=== PATIENT | male | born 1945 | race African-American/Black ===

== ENCOUNTER 2021-12-05 08:50 | Inpatient (IN) | payer MEDICARE, MEDICAID ==
[2021-12-05 09:41] LABS: Actual Bicarbonate (HCO3v) 31 mEq/L (22-28); Base Excess 4.1 mEq/L (-2.0 to +3.0); Chloride (VBG) 103 mmol/L (98-106); Potassium (VBG) 4.38 mmol/L (3.70-5.30); Puncture Site Other Site; Sodium 142.4 mmol/L (133-146); pH (venous) 7.36 (7.32-7.43)
[2021-12-05 09:48] LABS: #Monocytes 0.2 10x3/uL (0.0-1.1); %Basophils 0.2 % (0.0-2.0); %Lymphocytes 15.8 % (18.0-47.0); %Monocytes 4.6 % (0.0-10.0); %Neutrophils 79.2 % (40.0-75.0); Hemoglobin 12.7 g/dL (13.5-17.5); Mean Corpuscular HGB CONC 32.2 g/dL (32.0-36.0); Mean Corpuscular Hemoglobin 29.8 pg (27.0-33.0); Mean Corpuscular Volume 92.7 fl (81.2-95.1); Mean Platelet Volume 10.9 fl (7.4-10.4); Platelet Count 163 10x3/uL (150-450); RBC Distribution Width 12.8 % (11.5-14.5); Red Blood Cell (RBC) Count 4.26 10x6/uL (4.32-5.72)
[2021-12-05 10:01] LABS: ALT (SGPT) 74 U/L (8-55); AST (SGOT) 290 U/L (5-34); Acetaminophen Less than 6.0 mcg/mL (10.0-30.0); Albumin 3.8 g/dL (3.4-4.8); Alcohol Less than 10 mg/dL (Less than 10); Alkaline Phosphatase 53 U/L (40-110); Anion Gap 14 mmol/L (10-20); BUN (Urea Nitrogen) 17 mg/dL (8.4-25.7); Bilirubin, Total 1.2 mg/dL (0.2-1.2); Calc. Creatinine Clearance 0 mL/min (70-130); Calcium 9.1 mg/dL (7.8-10.44); Carbon Dioxide 30 mmol/L (23-31); Chloride 104 mmol/L (98-107); Globulin 3.4 g/dL (2.4-3.5); Glucose 107 mg/dL (83-110); Potassium 3.5 mmol/L (3.5-5.1); Protein, Total 7.2 g/dL (5.8-8.1); Salicylate Less than 8.0 mg/dL (15.0-30.0); Sodium 144 mmol/L (136-145)
[2021-12-05] MEDS ORDERED: methylPREDNISolone Sod Succ/PF 125 MG/2 ML VIAL ONE (10:18)
[2021-12-05] MEDS ORDERED: cefTRIAXone\\ROCEPHIN 2 GM VIAL ONE (11:10)
[2021-12-05] MEDS ORDERED: Azithromycin 500 MG VIAL ONE (11:11)
[2021-12-05 11:13] LABS: SARS-CoV-2 NAA Rapid Test DETECTED (NotDetected)
[2021-12-05 11:26] LABS: CKMB 22.2 ng/mL (0-6.6)
[2021-12-05] MEDS ORDERED: Ventolin HFA Inhaler 60 PUFF INHALER ONE ×2 (11:43→22:13)
[2021-12-05] MEDS ORDERED: Acetaminophen 325 MG TAB PO PRN (12:01)
[2021-12-05] MEDS ORDERED: Ondansetron ODT 4 MG TAB PO PRN (12:01)
[2021-12-05] MEDS ORDERED: Ondansetron PF 4 MG/2 ML Vial IVP PRN (12:01)
[2021-12-05] MEDS ORDERED: Acetaminophen 650 MG Suppository PR PRN (12:01)
[2021-12-05 12:20] LABS: Lactic Acid 1.2 mmol/L (0.5-2.2)
[2021-12-05 17:28] LABS: CKMB 2.3 ng/mL (0-6.6)
[2021-12-05] MEDS ORDERED: Ipratropium Bromide 2.5 ml Neb NEB PRN (18:04)
[2021-12-05] MEDS: Sodium Chloride 0.9% 1,000 ML IV SCH (19:15)
[2021-12-05] MEDS ORDERED: Acetaminophen 325 MG TAB ONE (19:54)
[2021-12-05] MEDS ORDERED: Acetaminophen 325 MG Suppository ONE (20:11)
[2021-12-05] MEDS ORDERED: Heparin 5,000 UNITS/ML VIAL ONE (21:42)
[2021-12-05] MEDS: Heparin 5,000 UNITS/ML VIAL SC SCH (21:45)
[2021-12-05] MEDS: Ventolin HFA Inhaler 60 PUFF INHALER INH PRN (22:30)
[2021-12-06 03:49] LABS: #Monocytes 0.1 10x3/uL (0.0-1.1); #Neutrophils 2.5 10x3/uL (1.5-8.4); %Lymphocytes 18.5 % (18.0-47.0); %Neutrophils 77.2 % (40.0-75.0); Hemoglobin 12.6 g/dL (13.5-17.5); Mean Corpuscular HGB CONC 32.1 g/dL (32.0-36.0); Mean Corpuscular Hemoglobin 30.3 pg (27.0-33.0); Mean Corpuscular Volume 94.2 fl (81.2-95.1); Mean Platelet Volume 11.4 fl (7.4-10.4); Platelet Count 186 10x3/uL (150-450); Red Blood Cell (RBC) Count 4.16 10x6/uL (4.32-5.72); White Blood Cell (WBC) Count 3.3 10x3/uL (3.5-10.5)
[2021-12-06 04:18] LABS: ALT (SGPT) 65 U/L (8-55); AST (SGOT) 238 U/L (5-34); Albumin 3.3 g/dL (3.4-4.8); Alkaline Phosphatase 44 U/L (40-110); Anion Gap 15 mmol/L (10-20); BUN (Urea Nitrogen) 23 mg/dL (8.4-25.7); Bilirubin, Total 0.8 mg/dL (0.2-1.2); Calc. Creatinine Clearance 0 mL/min (70-130); Calcium 8.6 mg/dL (7.8-10.44); Carbon Dioxide 24 mmol/L (23-31); Chloride 111 mmol/L (98-107); Globulin 3.1 g/dL (2.4-3.5); Glucose 145 mg/dL (83-110); Potassium 4.1 mmol/L (3.5-5.1); Protein, Total 6.4 g/dL (5.8-8.1); Sodium 146 mmol/L (136-145)
[2021-12-06] MEDS: Sodium Chloride 0.9% 1,000 ML IV SCH (06:52)
[2021-12-06] MEDS ORDERED: Heparin 5,000 UNITS/ML VIAL ONE (08:17)
[2021-12-06] MEDS ORDERED: Azithromycin 500 MG VIAL ONE (08:17)
[2021-12-06] MEDS ORDERED: cefTRIAXone\\ROCEPHIN 1 GM VIAL ONE (08:17)
[2021-12-06] MEDS: Azithromycin 500 MG in Sodium Chloride 0.9% 250 ML 250 ML IVPB SCH (08:34)
[2021-12-06] MEDS: Heparin 5,000 UNITS/ML VIAL SC SCH ×2 (08:35→22:23)
[2021-12-06] MEDS: cefTRIAXone\\ROCEPHIN 1 GM in Sodium Chloride 0.9% 100 ML IVPB SCH (08:35)
[2021-12-06] MEDS: Mometasone Furoate 120 PUFF 220 MCG INH SCH ×3 (08:45→21:35)
[2021-12-06] MEDS: D5 1/2 NS 500 ML IV SCH ×3 (14:30→22:15)
[2021-12-06 16:59] VITALS: BMI 18.2
[2021-12-06] MEDS: Ventolin HFA Inhaler 60 PUFF INHALER INH PRN (20:05)
[2021-12-07 06:02] LABS: #Monocytes 0.2 10x3/uL (0.0-1.1); #Neutrophils 2.9 10x3/uL (1.5-8.4); %Lymphocytes 23.4 % (18.0-47.0); %Neutrophils 71.4 % (40.0-75.0); Hemoglobin 13.2 g/dL (13.5-17.5); Mean Corpuscular HGB CONC 32.4 g/dL (32.0-36.0); Mean Corpuscular Volume 92.7 fl (81.2-95.1); Mean Platelet Volume 11.1 fl (7.4-10.4); Platelet Count 248 10x3/uL (150-450); RBC Distribution Width 12.9 % (11.5-14.5)
[2021-12-07] MEDS: D5 1/2 NS 500 ML IV SCH ×3 (07:29→17:51)
[2021-12-07 07:31] LABS: ALT (SGPT) 60 U/L (8-55); AST (SGOT) 176 U/L (5-34); Albumin 3.3 g/dL (3.4-4.8); Alkaline Phosphatase 45 U/L (40-110); Anion Gap 16 mmol/L (10-20); BUN (Urea Nitrogen) 22 mg/dL (8.4-25.7); Bilirubin, Total 0.7 mg/dL (0.2-1.2); Calc. Creatinine Clearance 66 mL/min (70-130); Calcium 8.5 mg/dL (7.8-10.44); Carbon Dioxide 25 mmol/L (23-31); Chloride 109 mmol/L (98-107); Globulin 3.1 g/dL (2.4-3.5); Glucose 113 mg/dL (83-110); Potassium 4.2 mmol/L (3.5-5.1); Protein, Total 6.4 g/dL (5.8-8.1); Sodium 146 mmol/L (136-145)
[2021-12-07] MEDS: Mometasone Furoate 120 PUFF 220 MCG INH SCH ×2 (08:46→19:55)
[2021-12-07] MEDS: Heparin 5,000 UNITS/ML VIAL SC SCH ×2 (10:18→21:45)
[2021-12-07] MEDS: Azithromycin 500 MG in Sodium Chloride 0.9% 250 ML 250 ML IVPB SCH (10:23)
[2021-12-07] MEDS: cefTRIAXone\\ROCEPHIN 1 GM in Sodium Chloride 0.9% 100 ML IVPB SCH (10:24)
[2021-12-08] MEDS: D5 1/2 NS 500 ML IV SCH (04:18)
[2021-12-08 04:54] LABS: ALT (SGPT) 49 U/L (8-55); AST (SGOT) 125 U/L (5-34); Albumin 3.1 g/dL (3.4-4.8); Alkaline Phosphatase 46 U/L (40-110); Anion Gap 11 mmol/L (10-20); BUN (Urea Nitrogen) 13 mg/dL (8.4-25.7); Bilirubin, Total 0.9 mg/dL (0.2-1.2); Calc. Creatinine Clearance 78 mL/min (70-130); Calcium 8.3 mg/dL (7.8-10.44); Carbon Dioxide 27 mmol/L (23-31); Chloride 109 mmol/L (98-107); Globulin 2.7 g/dL (2.4-3.5); Glucose 103 mg/dL (83-110); Potassium 3.8 mmol/L (3.5-5.1); Protein, Total 5.8 g/dL (5.8-8.1); Sodium 143 mmol/L (136-145)
[2021-12-08 05:30] LABS: #Monocytes 0.2 10x3/uL (0.0-1.1); #Neutrophils 1.2 10x3/uL (1.5-8.4); %Lymphocytes 43.8 % (18.0-47.0); %Monocytes 8.5 % (0.0-10.0); %Neutrophils 47.3 % (40.0-75.0); Hemoglobin 11.8 g/dL (13.5-17.5); Mean Corpuscular HGB CONC 31.6 g/dL (32.0-36.0); Mean Corpuscular Hemoglobin 29.6 pg (27.0-33.0); Mean Corpuscular Volume 93.7 fl (81.2-95.1); Mean Platelet Volume 11.3 fl (7.4-10.4); Platelet Count 218 10x3/uL (150-450); RBC Distribution Width 12.7 % (11.5-14.5); Red Blood Cell (RBC) Count 3.98 10x6/uL (4.32-5.72); White Blood Cell (WBC) Count 2.6 10x3/uL (3.5-10.5)
[2021-12-08] MEDS ORDERED: Dextrose 5 %-0.45 % NaCl 1,000 ML IV SCH (05:45)
[2021-12-08] MEDS: Ventolin HFA Inhaler 60 PUFF INHALER INH PRN (08:00)
[2021-12-08] MEDS: Mometasone Furoate 120 PUFF 220 MCG INH SCH ×2 (08:00→20:15)
[2021-12-08] MEDS: cefTRIAXone\\ROCEPHIN 1 GM in Sodium Chloride 0.9% 100 ML IVPB SCH (09:29)
[2021-12-08] MEDS: Azithromycin 500 MG in Sodium Chloride 0.9% 250 ML 250 ML IVPB SCH (09:30)
[2021-12-08] MEDS: Heparin 5,000 UNITS/ML VIAL SC SCH ×2 (09:34→20:45)
[2021-12-08 18:18] LABS: Bilirubin Neg (Negative); Blood, Urine Negative (Negative); Clarity Clear (Clear); Glucose, Urine (Dipstick) Normal (Negative); Ketone, Urine Negative (Negative); Leukocyte Negative (Negative); Nitrite Negative (Negative); Protein, Urine (Dipstick) 15 mg/dl (Neg-Trace); Specific Gravity, Urine 1.005 (1.002-1.036); Urobilinogen 12 mg/dL (Less than 2)
[2021-12-08 18:20] LABS: Urine Culture Reflex No No
[2021-12-08 18:22] LABS: RBC/HPF 0-3 HPF (0-3); Squamous Epithelial 0-3 HPF (0-3); WBC/HPF 0-3 HPF (0-3)
[2021-12-08 18:23] LABS: Bacteria/HPF None Seen HPF (None Seen)
[2021-12-08 18:30] LABS: Legionella Urinary Ag Negative (Negative); Strep pneumo Urine Ag NEGATIVE (NEGATIVE)
[2021-12-08] MEDS: Dexamethasone 20 MG/5 ML VIAL SLOW IVP SCH (20:45)
[2021-12-09 05:16] LABS: ALT (SGPT) 52 U/L (8-55); AST (SGOT) 97 U/L (5-34); Albumin 3.2 g/dL (3.4-4.8); Alkaline Phosphatase 59 U/L (40-110); Anion Gap 13 mmol/L (10-20); BUN (Urea Nitrogen) 14 mg/dL (8.4-25.7); Bilirubin, Total 0.9 mg/dL (0.2-1.2); Calc. Creatinine Clearance 74 mL/min (70-130); Calcium 8.5 mg/dL (7.8-10.44); Carbon Dioxide 26 mmol/L (23-31); Chloride 107 mmol/L (98-107); Globulin 3.2 g/dL (2.4-3.5); Glucose 130 mg/dL (83-110); Protein, Total 6.4 g/dL (5.8-8.1); Sodium 142 mmol/L (136-145)
[2021-12-09 05:48] LABS: Hemoglobin 12.1 g/dL (13.5-17.5); Mean Corpuscular HGB CONC 31.3 g/dL (32.0-36.0); Mean Corpuscular Hemoglobin 29.3 pg (27.0-33.0); Mean Corpuscular Volume 93.7 fl (81.2-95.1); Platelet Count 252 10x3/uL (150-450); RBC Distribution Width 12.5 % (11.5-14.5); Red Blood Cell (RBC) Count 4.13 10x6/uL (4.32-5.72); White Blood Cell (WBC) Count 1.6 10x3/uL (3.5-10.5)
[2021-12-09 07:45] LABS: MDiff Complete? YES
[2021-12-09] MEDS: Mometasone Furoate 120 PUFF 220 MCG INH SCH ×2 (07:58→21:06)
[2021-12-09] MEDS: Ventolin HFA Inhaler 60 PUFF INHALER INH PRN (07:59)
[2021-12-09 08:19] LABS: Eosinophils 1 % (0-10); Lymphocytes 21 % (21-51); Monocytes 13 % (0-10); Neutrophil 64 % (42-75); Platelet Morphology Comment Appears Adequate; Reactive Lymphocytes 1 % (0-10)
[2021-12-09] MEDS: cefTRIAXone\\ROCEPHIN 1 GM in Sodium Chloride 0.9% 100 ML IVPB SCH (09:10)
[2021-12-09] MEDS: Dexamethasone 20 MG/5 ML VIAL SLOW IVP SCH ×2 (09:11→21:45)
[2021-12-09] MEDS: Heparin 5,000 UNITS/ML VIAL SC SCH ×2 (09:12→21:44)
[2021-12-09] MEDS: Azithromycin 500 MG in Sodium Chloride 0.9% 250 ML 250 ML IVPB SCH (09:12)
[2021-12-10 05:20] LABS: Hemoglobin 12.9 g/dL (13.5-17.5); Mean Corpuscular HGB CONC 32.6 g/dL (32.0-36.0); Mean Corpuscular Hemoglobin 29.7 pg (27.0-33.0); Mean Corpuscular Volume 91.2 fl (81.2-95.1); Mean Platelet Volume 10.7 fl (7.4-10.4); Platelet Count 330 10x3/uL (150-450); RBC Distribution Width 12.5 % (11.5-14.5); Red Blood Cell (RBC) Count 4.34 10x6/uL (4.32-5.72); White Blood Cell (WBC) Count 3.7 10x3/uL (3.5-10.5)
[2021-12-10 05:37] LABS: ALT (SGPT) 46 U/L (8-55); AST (SGOT) 62 U/L (5-34); Albumin 3.2 g/dL (3.4-4.8); Alkaline Phosphatase 56 U/L (40-110); Anion Gap 13 mmol/L (10-20); BUN (Urea Nitrogen) 21 mg/dL (8.4-25.7); Bilirubin, Total 0.7 mg/dL (0.2-1.2); Calc. Creatinine Clearance 73 mL/min (70-130); Carbon Dioxide 26 mmol/L (23-31); Chloride 109 mmol/L (98-107); Globulin 3.3 g/dL (2.4-3.5); Glucose 170 mg/dL (83-110); Potassium 4.3 mmol/L (3.5-5.1); Protein, Total 6.5 g/dL (5.8-8.1); Sodium 144 mmol/L (136-145)
[2021-12-10 06:10] LABS: MDiff Complete? YES
[2021-12-10 06:13] LABS: Lymphocytes 11 % (21-51); Monocytes 11 % (0-10); Neutrophil 73 % (42-75); Reactive Lymphocytes 5 % (0-10)
[2021-12-10 06:16] LABS: Platelet Morphology Comment Appears Adequate
[2021-12-10 06:17] LABS: RBC Morphology Normal
[2021-12-10] MEDS: Ventolin HFA Inhaler 60 PUFF INHALER INH PRN (07:45)
[2021-12-10] MEDS: Mometasone Furoate 120 PUFF 220 MCG INH SCH ×2 (07:45→19:25)
[2021-12-10] MEDS: cefTRIAXone\\ROCEPHIN 1 GM in Sodium Chloride 0.9% 100 ML IVPB SCH (08:58)
[2021-12-10] MEDS: Azithromycin 500 MG in Sodium Chloride 0.9% 250 ML 250 ML IVPB SCH (08:58)
[2021-12-10] MEDS: Dexamethasone 20 MG/5 ML VIAL SLOW IVP SCH (08:59)
[2021-12-10] MEDS: Heparin 5,000 UNITS/ML VIAL SC SCH ×2 (08:59→23:25)
[2021-12-11 05:19] LABS: ALT (SGPT) 42 U/L (8-55); AST (SGOT) 51 U/L (5-34); Albumin 3.2 g/dL (3.4-4.8); Alkaline Phosphatase 51 U/L (40-110); Anion Gap 11 mmol/L (10-20); BUN (Urea Nitrogen) 17 mg/dL (8.4-25.7); Bilirubin, Total 0.7 mg/dL (0.2-1.2); Calc. Creatinine Clearance 77 mL/min (70-130); Calcium 8.9 mg/dL (7.8-10.44); Carbon Dioxide 28 mmol/L (23-31); Chloride 109 mmol/L (98-107); Glucose 99 mg/dL (83-110); Protein, Total 6.2 g/dL (5.8-8.1); Sodium 144 mmol/L (136-145)
[2021-12-11] MEDS: Azithromycin 500 MG in Sodium Chloride 0.9% 250 ML 250 ML IVPB SCH (08:21)
[2021-12-11] MEDS: Dexamethasone 4 MG TAB PO SCH (08:21)
[2021-12-11] MEDS: Heparin 5,000 UNITS/ML VIAL SC SCH ×2 (08:21→21:56)
[2021-12-11] MEDS: cefTRIAXone\\ROCEPHIN 1 GM in Sodium Chloride 0.9% 100 ML IVPB SCH (08:21)
[2021-12-11] MEDS: Mometasone Furoate 120 PUFF 220 MCG INH SCH ×2 (10:20→19:45)
[2021-12-11] MEDS: Ventolin HFA Inhaler 60 PUFF INHALER INH PRN (10:21)
[2021-12-12] MEDS: Mometasone Furoate 120 PUFF 220 MCG INH SCH ×2 (08:10→19:40)
[2021-12-12] MEDS: Dexamethasone 4 MG TAB PO SCH (09:47)
[2021-12-12] MEDS: cefTRIAXone\\ROCEPHIN 1 GM in Sodium Chloride 0.9% 100 ML IVPB SCH (09:47)
[2021-12-12] MEDS: Heparin 5,000 UNITS/ML VIAL SC SCH (09:47)
[2021-12-12] MEDS: Azithromycin 500 MG in Sodium Chloride 0.9% 250 ML 250 ML IVPB SCH (09:47)
[2021-12-12 18:04] VITALS: BP 157/74; TEMP 98.2
== END 2021-12-12 20:35 | DRG 177 ==
LOC: CSHERS 08:50 → CSHERHOLD 18:48 → CSHTELE 12-06 10:38
PROVIDERS: ADMIT Family Medicine; ATTEND Hospitalist
PROC: 8E0ZXY6 Isolation (ICD-10-PCS; principal; 2021-12-05)
PROC: 3E0333Z Introduction of Anti-inflammatory into Peripheral Vein, Percutaneous Approach (ICD-10-PCS; 2021-12-08)
DX: U07.1 COVID-19 (principal); J12.82 Pneumonia due to coronavirus disease 2019; J96.01 Acute respiratory failure with hypoxia; J18.9 Pneumonia, unspecified organism; E87.2 Acidosis; R64 Cachexia; Z68.1 Body mass index [BMI] 19.9 or less, adult; G89.29 Other chronic pain; M54.9 Dorsalgia, unspecified; F10.10 Alcohol abuse, uncomplicated; K74.60 Unspecified cirrhosis of liver; I25.10 Atherosclerotic heart disease of native coronary artery without angina pectoris; I10 Essential (primary) hypertension; E78.5 Hyperlipidemia, unspecified; J43.9 Emphysema, unspecified; I25.2 Old myocardial infarction; Z79.82 Long term (current) use of aspirin; Z79.899 Other long term (current) drug therapy; Z98.890 Other specified postprocedural states; Z95.1 Presence of aortocoronary bypass graft
CPT/HCPCS: 0240U; 36415; 36416; 71045; 71275; 80053; 80307; 81001; 82553; 82805; 83605; 83690; 83735; 83880; 84145; 84484; 85025; 85379; 86140; 87040; 87449; 87899; 93005; 94664; 94760; 96365; 96375; J0456; J0696; J1100; J1644; J2930; J3490; J7042; J7050; J8540

== ENCOUNTER 2022-10-04 11:49 | Emergency (ER) | payer MEDICARE, OTHER ==
[2022-10-04 13:40] LABS: #Eosinphils 0.3 10x3/uL (0.0-0.5); #Monocytes 0.5 10x3/uL (0.0-1.1); #Neutrophils 2.6 10x3/uL (1.5-8.4); %Basophils 0.7 % (0.0-2.0); %Lymphocytes 38.5 % (18.0-47.0); %Monocytes 8.2 % (0.0-10.0); %Neutrophils 46.4 % (40.0-75.0); Mean Corpuscular HGB CONC 33.3 g/dL (32.0-36.0); Mean Corpuscular Hemoglobin 31.5 pg (27.0-33.0); Mean Corpuscular Volume 94.5 fl (81.2-95.1); Mean Platelet Volume 10.6 fl (7.4-10.4); Platelet Count 266 10x3/uL (150-450); RBC Distribution Width 12.6 % (11.5-14.5); Red Blood Cell (RBC) Count 3.81 10x6/uL (4.32-5.72); White Blood Cell (WBC) Count 5.6 10x3/uL (3.5-10.5)
[2022-10-04 13:56] LABS: ALT (SGPT) 16 U/L (8-55); AST (SGOT) 18 U/L (5-34); Albumin 4.1 g/dL (3.4-4.8); Alkaline Phosphatase 79 U/L (40-110); Anion Gap 12 mmol/L (10-20); BUN (Urea Nitrogen) 26 mg/dL (8.4-25.7); Bilirubin, Total 0.5 mg/dL (0.2-1.2); Calc. Creatinine Clearance 0 mL/min (70-130); Calcium 9.6 mg/dL (7.8-10.44); Carbon Dioxide 26 mmol/L (23-31); Chloride 107 mmol/L (98-107); Estimated GFR 87; Globulin 2.4 g/dL (2.4-3.5); Glucose 130 mg/dL (83-110); Potassium 4.2 mmol/L (3.5-5.1); Protein, Total 6.5 g/dL (5.8-8.1); Sodium 141 mmol/L (136-145)
[2022-10-04 14:58] LABS: Bilirubin Neg (Negative); Blood, Urine Negative (Negative); Clarity Clear (Clear); Glucose, Urine (Dipstick) Normal (Negative); Ketone, Urine Negative (Negative); Leukocyte Negative (Negative); Nitrite Negative (Negative); Protein, Urine (Dipstick) Negative (Neg-Trace); Specific Gravity, Urine 1.015 (1.005-1.030); Urobilinogen Normal mg/dL (Less than 2); pH, Urine 6.5 (5.0-9.0)
== END 2022-10-04 16:04 | disposition home or self-care (01) ==
LOC: CSHERS 11:49
DX: R03.1 Nonspecific low blood-pressure reading (principal); I10 Essential (primary) hypertension; I25.10 Atherosclerotic heart disease of native coronary artery without angina pectoris
CPT/HCPCS: 36415; 71045; 80053; 81003; 84484; 85025; 93005